=== PATIENT | female | born 1990 | race Caucasian/White ===

== ENCOUNTER 2021-01-04 17:35 | Emergency (ER) | payer OTHER ==
[~2021-01-04] VITALS: Ht 170.2 cm; Wt 86.2 kg
[2021-01-04 17:42] VITALS: BP 171/119
== END 2021-01-04 18:06 | disposition home or self-care (01) ==
LOC: ER 17:35
DX: M25.511 Pain in right shoulder (principal); Z90.710 Acquired absence of both cervix and uterus